=== PATIENT | female | born 1995 | race Caucasian/White ===

== ENCOUNTER 2017-08-31 19:41 | Emergency (ER) | payer MEDICAID ==
[2017-08-31 20:35] LABS: APPEARANCE HAZY (CLEAR); BILIRUBIN NEGATIVE (NEGATIVE); COLOR YELLOW (YELLOW); GLUCOSE NEGATIVE (NEGATIVE); KETONE NEGATIVE (NEGATIVE); NITRITE NEGATIVE (NEGATIVE); PROTEIN NEGATIVE (NEGATIVE); UROBILINOGEN NORMAL (NORMAL)
[2017-08-31 20:37] LABS: BACTERIA MODERATE /hpf (NONE SEEN); MUCUS >1+ /lpf (NONE SEEN); RED CELLS - URINE 0-5 /hpf (0-5); WHITE CELLS - URINE 0-5 /hpf (0-5)
[2017-08-31 20:45] LABS: BASOPHILS 0.4 % (0-2); EOSINOPHILS 1.6 % (0-7); HEMATOCRIT 36.8 % (36.0-48.0); IMMATURE GRANULOCYTES 0.3 % (0-5); LYMPHOCYTES 33.6 % (15-50); MCH 27.6 pg (26.0-34.0); MCHC 32.6 g/dL (31.0-37.0); MCV 84.8 fL (80.0-100.0); MEAN PLATELET VOLUME 9.6 fL (7.4-10.4); NEUTROPHILS 54.1 % (40-80); PLATELET COUNT 244 10x3/uL (130-400); RBC 4.34 10x6/uL (4.00-5.40); RDW 13.1 % (11.5-14.5); WBC 6.9 10x3/uL (4.8-10.8)
[2017-08-31 20:54] LABS: HCG SERUM NEGATIVE (NEGATIVE)
== END 2017-08-31 21:00 | disposition home or self-care (01) ==
LOC: D.ER 19:41
PROVIDERS: Family Medicine
DX: N39.0 Urinary tract infection, site not specified (principal); R11.0 Nausea

== ENCOUNTER 2017-10-03 20:37 | Emergency (ER) | payer MEDICAID ==
[2017-10-03 21:16] LABS: BASOPHILS 0.3 % (0-2); HEMOGLOBIN 11.5 g/dL (12-16); IMMATURE GRANULOCYTES 0.2 % (0-5); LYMPHOCYTES 27.6 % (15-50); MCH 28.1 pg (26.0-34.0); MCHC 33.8 g/dL (31.0-37.0); MCV 83.1 fL (80.0-100.0); MONOCYTES 8.8 % (2-11); NEUTROPHILS 62.1 % (40-80); PLATELET COUNT 246 10x3/uL (130-400); RBC 4.09 10x6/uL (4.00-5.40)
[2017-10-03 21:22] LABS: APPEARANCE CLOUDY (CLEAR); BACTERIA MODERATE /hpf (NONE SEEN); BILIRUBIN NEGATIVE (NEGATIVE); COLOR YELLOW (YELLOW); GLUCOSE NEGATIVE (NEGATIVE); KETONE NEGATIVE (NEGATIVE); MUCUS <1+ /lpf (NONE SEEN); NITRITE NEGATIVE (NEGATIVE); PROTEIN NEGATIVE (NEGATIVE); RED CELLS - URINE RARE /hpf (0-5); SPECIFIC GRAVITY 1.025 (1.005-1.020); UROBILINOGEN NORMAL (NORMAL); WHITE CELLS - URINE 0-5 /hpf (0-5)
[2017-10-03 21:29] LABS: ALBUMIN 3.8 g/dL (3.4-5.0); ALKALINE PHOSPHATASE 27 U/L (46-116); ALT (SGPT) 25 U/L (10-68); CALC OSMOLALITY 270 mosm/kg (275-300); CALCIUM 9.1 mg/dL (8.5-10.1); CARBON DIOXIDE 28.4 mmol/L (21.0-32.0); CHLORIDE - SERUM 100 mmol/L (98-107); CREATININE - SERUM 0.6 mg/dL (0.6-1.3); POTASSIUM - SERUM 3.3 mmol/L (3.5-5.1); SODIUM 137 mmol/L (136-145); UREA NITROGEN 11 mg/dL (7-18); eGFR NON AFRICAN AMERICAN > 90 mL/min (90-120)
[2017-10-03 21:38] LABS: GLUCOSE 61 mg/dL (74-106)
[2017-10-03 21:53] LABS: HCG - QUANTITATIVE (MATERNAL) 78331 mIU/mL
== END 2017-10-03 23:07 | disposition home or self-care (01) ==
LOC: D.ER 20:37
PROVIDERS: Physician Assistant Medical
DX: D64.9 Anemia, unspecified (principal)

== ENCOUNTER 2017-11-29 21:48 | Emergency (ER) | payer MEDICAID ==
[2017-11-29 22:22] LABS: APPEARANCE CLEAR (CLEAR); BILIRUBIN NEGATIVE (NEGATIVE); COLOR YELLOW (YELLOW); GLUCOSE NEGATIVE (NEGATIVE); KETONE NEGATIVE (NEGATIVE); NITRITE NEGATIVE (NEGATIVE); PROTEIN NEGATIVE (NEGATIVE); SPECIFIC GRAVITY 1.015 (1.005-1.020); UROBILINOGEN NORMAL (NORMAL)
[2017-11-29 22:34] LABS: BASOPHILS 0.1 % (0-2); HEMATOCRIT 31.4 % (36.0-48.0); HEMOGLOBIN 10.3 g/dL (12-16); IMMATURE GRANULOCYTES 0.3 % (0-5); LYMPHOCYTES 31.2 % (15-50); MCH 27.5 pg (26.0-34.0); MCHC 32.8 g/dL (31.0-37.0); MEAN PLATELET VOLUME 9.8 fL (7.4-10.4); MONOCYTES 7.5 % (2-11); NEUTROPHILS 59.9 % (40-80); PLATELET COUNT 194 10x3/uL (130-400); RBC 3.74 10x6/uL (4.00-5.40); RDW 13.4 % (11.5-14.5)
[2017-11-29 22:49] LABS: ALBUMIN 2.9 g/dL (3.4-5.0); ALKALINE PHOSPHATASE 20 U/L (46-116); ALT (SGPT) 21 U/L (10-68); CALC OSMOLALITY 277 mosm/kg (275-300); CALCIUM 8.3 mg/dL (8.5-10.1); CHLORIDE - SERUM 105 mmol/L (98-107); CREATININE - SERUM 0.4 mg/dL (0.6-1.3); GLUCOSE 88 mg/dL (74-106); POTASSIUM - SERUM 3.7 mmol/L (3.5-5.1); PROTEIN - SERUM 6.4 g/dL (6.4-8.2); SODIUM 141 mmol/L (136-145); UREA NITROGEN 6 mg/dL (7-18); eGFR NON AFRICAN AMERICAN > 90 mL/min (90-120)
[2017-11-29 23:12] LABS: HCG - QUANTITATIVE (MATERNAL) 13419 mIU/mL
[2018-01-03] MEDS ORDERED: PRENATAL COMPLE1 TAB PO (21:13)
[2018-01-03] MEDS ORDERED: FERROUS SULFAT325 MG PO (21:13)
== END 2017-11-29 23:55 | disposition home or self-care (01) ==
LOC: D.ER 21:48
PROVIDERS: Family Medicine
DX: O26.892 Other specified pregnancy related conditions, second trimester (principal); Z3A.16 16 weeks gestation of pregnancy; N76.0 Acute vaginitis; B96.89 Other specified bacterial agents as the cause of diseases classified elsewhere; R10.30 Lower abdominal pain, unspecified

== ENCOUNTER → 2018-01-03 20:33 | Outpatient (CLI) | payer MEDICAID ==
[~2018-01-03 20:33] MED LIST: FERROUS SULFAT325 MG PO; PRENATAL COMPLE1 TAB PO
[2018-01-03 21:32] LABS: APPEARANCE HAZY (CLEAR); BILIRUBIN NEGATIVE (NEGATIVE); COLOR YELLOW (YELLOW); GLUCOSE NEGATIVE (NEGATIVE); KETONE NEGATIVE (NEGATIVE); NITRITE NEGATIVE (NEGATIVE); PH 5.5 (5.0-6.0); PROTEIN NEGATIVE (NEGATIVE); SPECIFIC GRAVITY 1.015 (1.005-1.020); UROBILINOGEN NORMAL (NORMAL)
== END | disposition home or self-care (01) ==
LOC: D.LDO 20:33
PROVIDERS: Obstetrics & Gynecology
DX: O26.892 Other specified pregnancy related conditions, second trimester (principal); Z3A.20 20 weeks gestation of pregnancy; M54.5 Low back pain; R10.30 Lower abdominal pain, unspecified

== ENCOUNTER 2018-01-25 19:09 | Emergency (ER) | payer MEDICAID | END 2018-01-26 01:35 | disposition home or self-care (01) | LOC: D.ER 19:09 | DX: I80.9 Phlebitis and thrombophlebitis of unspecified site (principal) ==

== ENCOUNTER → 2018-02-05 20:07 | Outpatient (CLI) | payer MEDICAID ==
[2018-02-05 20:44] LABS: APPEARANCE CLEAR (CLEAR); BILIRUBIN NEGATIVE (NEGATIVE); COLOR YELLOW (YELLOW); GLUCOSE NEGATIVE (NEGATIVE); KETONE NEGATIVE (NEGATIVE); NITRITE NEGATIVE (NEGATIVE); PROTEIN NEGATIVE (NEGATIVE); UROBILINOGEN NORMAL (NORMAL)
== END | disposition home or self-care (01) ==
LOC: D.LDO 20:07
PROVIDERS: Obstetrics & Gynecology
DX: O26.892 Other specified pregnancy related conditions, second trimester (principal); Z3A.25 25 weeks gestation of pregnancy; M54.5 Low back pain; R10.2 Pelvic and perineal pain

== ENCOUNTER → 2018-03-02 14:10 | Outpatient (CLI) | payer MEDICAID | END | disposition home or self-care (01) | LOC: D.LDO 14:10 | DX: O36.8130 Decreased fetal movements, third trimester, not applicable or unspecified (principal); Z3A.28 28 weeks gestation of pregnancy ==

== ENCOUNTER → 2018-03-14 19:10 | Outpatient (CLI) | payer MEDICAID | END | disposition home or self-care (01) | LOC: D.LDO 19:10 | DX: O26.893 Other specified pregnancy related conditions, third trimester (principal); Z3A.30 30 weeks gestation of pregnancy; R22.43 Localized swelling, mass and lump, lower limb, bilateral ==

== ENCOUNTER 2018-05-02 20:35 | Outpatient (CLI) | payer MEDICAID ==
[2018-05-02 21:30] LABS: APPEARANCE CLEAR (CLEAR); BILIRUBIN NEGATIVE (NEGATIVE); COLOR YELLOW (YELLOW); GLUCOSE NEGATIVE (NEGATIVE); KETONE NEGATIVE (NEGATIVE); NITRITE NEGATIVE (NEGATIVE); PROTEIN NEGATIVE (NEGATIVE); UROBILINOGEN NORMAL (NORMAL)
[2018-05-02 21:32] LABS: WHITE CELLS - URINE 0-5 /hpf (0-5)
[2018-05-02 21:33] LABS: BACTERIA FEW /hpf (NONE SEEN)
[2018-05-20 17:40] VITALS: BMI 45.9
== END 2018-05-02 21:48 ==
LOC: D.LDO 20:35
PROVIDERS: Obstetrics & Gynecology
DX: O26.893 Other specified pregnancy related conditions, third trimester (principal); Z3A.37 37 weeks gestation of pregnancy; M54.5 Low back pain; O36.8130 Decreased fetal movements, third trimester, not applicable or unspecified

== ENCOUNTER → 2018-05-10 13:07 | Outpatient (CLI) | payer MEDICAID ==
[~2018-05-10 13:07] MED LIST changes: +COLACE100 MG PO; +MOTRIN600 MG PO
[2018-05-20 17:40] VITALS: BMI 45.9
== END | disposition home or self-care (01) ==
LOC: D.LDO 13:07
DX: O26.893 Other specified pregnancy related conditions, third trimester (principal); Z3A.38 38 weeks gestation of pregnancy

== ENCOUNTER → 2018-05-16 17:02 | Outpatient (CLI) | payer MEDICAID ==
[2018-05-20 17:40] VITALS: BMI 45.9
== END | disposition home or self-care (01) ==
LOC: D.LDO 17:02
DX: O26.53 Maternal hypotension syndrome, third trimester (principal); Z3A.39 39 weeks gestation of pregnancy

== ENCOUNTER 2018-05-20 16:02 | Inpatient (IN) | payer MEDICAID ==
[~2018-05-20] VITALS: Ht 160 cm; Wt 117.5 kg
--- NOTE | ~2018-05-20 | OP ---
PATIENT NAME: ZHANNA NEUMANN MEDICAL RECORD: [id number] :97 LOCATION:[id number] ADMISSION DATE:05/20/18 SURGEON: RICH FOX MD DATE OF OPERATION: 05/21/2018 PREDELIVERY DIAGNOSES: 1. Gestational hypertension. 2. Term . POSTDELIVERY DIAGNOSES: 1. Gestational hypertension. 2. Term . PROCEDURE: Induction of labor with vaginal delivery. ATTENDING: Rich Fox MD ANESTHETIC: Continuous lumbar epidural. FINDINGS: Viable female infant, AZALEA presentation, nuchal cord times 1 reduced on the perineum. Weight 8 pounds 5 ounces, Apgars 9 and 9. Second-degree laceration with 3-0 and 4-0 chromic repair. Placenta spontaneous and intact. ESTIMATED BLOOD LOSS: 400 cc. DISPOSITION: Mother and infant recovered in the room. TRANSINT:[id number] Voice Confirmation ID: [id number] DOCUMENT ID: [id number] RICH FOX MD at 1627 CC: [id number] DICTATION DATE: 05/21/18 1347 [employer] REL[employer] COORDINATOR: 05/21/18 1411 ADM IN [facility] [address] [place] [address]
[~2018-05-20 16:02] MED LIST changes: -COLACE100 MG PO; -MOTRIN600 MG PO
[2018-05-20 17:40] VITALS: BP 121/70; Ht 160 cm; Wt 117.5 kg
[2018-05-20 17:57] LABS: HEMATOCRIT 34.6 % (36.0-48.0); HEMOGLOBIN 11.4 g/dL (12-16); MCH 27.4 pg (26.0-34.0); MCHC 32.9 g/dL (31.0-37.0); MCV 83.2 fL (80.0-100.0); MEAN PLATELET VOLUME 11.8 fL (7.4-10.4); RBC 4.16 10x6/uL (4.00-5.40); RDW 14.8 % (11.5-14.5); WBC 7.5 10x3/uL (4.8-10.8)
[2018-05-21 19:15] VITALS: BP 126/63
[2018-05-22 06:14] LABS: RAPID PLASMA REAGIN Non Reactive (Non Reactive)
[2018-05-22 11:09] VITALS: BP 115/73
[2018-05-22] MEDS ORDERED: MOTRIN600 MG PO (13:11)
[2018-05-22] MEDS ORDERED: COLACE100 MG PO (13:13)
== END 2018-05-22 15:14 | disposition home or self-care (01) | DRG 775 ==
LOC: D.LD 16:02
PROVIDERS: Obstetrics & Gynecology
PROC: 10E0XZZ Delivery of Products of Conception, External Approach (ICD-10-PCS; principal; 2018-05-21)
PROC: 0KQM0ZZ Repair Perineum Muscle, Open Approach (ICD-10-PCS; 2018-05-21)
DX: O13.4 Gestational [pregnancy-induced] hypertension without significant proteinuria, complicating childbirth (principal); Z3A.40 40 weeks gestation of pregnancy; Z37.0 Single live birth; O70.1 Second degree perineal laceration during delivery; O69.81X0 Labor and delivery complicated by cord around neck, without compression, not applicable or unspecified; O99.214 Obesity complicating childbirth